=== PATIENT | female | born 1990 | race Caucasian/White ===

== ENCOUNTER 2017-03-31 12:56 | Inpatient (IN) | payer BC, OTHER ==
[~2017-03-31] VITALS: Ht 175.3 cm; Wt 63.5 kg
[2017-04-02] MEDS ORDERED: CLONIDINE HCL 0.1 MG TABLET PO PRN (14:15)
[2017-04-02] MEDS ORDERED: LOPERAMIDE HCL 2 MG CAPSULE PO PRN ×2 (14:15)
[2017-04-02] MEDS ORDERED: MAGNESIUM HYDROXIDE 30 ML LIQUID UDC PO PRN (14:15)
[2017-04-02] MEDS ORDERED: IBUPROFEN 600 MG TABLET PO PRN (14:15)
[2017-04-02] MEDS ORDERED: METHOCARBAMOL 750 MG TABLET PO PRN (14:15)
[2017-04-02] MEDS ORDERED: HYDROXYZINE PAMOATE 25 MG CAPSULE PO PRN (14:15)
[2017-04-02] MEDS ORDERED: ONDANSETRON 4 MG/2 ML VIAL IM PRN (14:15)
[2017-04-02] MEDS ORDERED: BUPRENORPHINE HCL 2 MG TAB.SUBL SL PRN (14:15)
[2017-04-02] MEDS ORDERED: ACETAMINOPHEN 325 MG TABLET PO PRN (14:15)
[2017-04-02] MEDS ORDERED: MAG HYDROX/AL HYDROX/SIMETH 30 ML LIQUID UDC PO PRN (14:15)
[2017-04-02] MEDS ORDERED: ONDANSETRON ODT 4 MG TAB.RAPDIS SL PRN (14:15)
[2017-04-02] MEDS ORDERED: MIRALAX 17 GM POWD.PACK PO PRN (14:15)
[2017-04-02 14:20] VITALS: BP 110/76
--- NOTE | 2017-04-02 14:20 | NUR ---
PRE-ADMISSION NOTE 26 year old female patient admitted under the care of Dr. Ervin. Pt states she is from [place] and came to [facility] to detox from heroin and methamphetamine. A/O x4. Pt reports using Heroin 1/2 gram (smoke) x1 month, last used 1/2 gram, on 04/01/17 at 1400, methamphetamine 1 gram (smoke), last used 1 gram on 03/28/17. Pt has used at this rate for 1 month and reports completing rehab in February 2017 in [facility] for 90 days. Pt reports allergies to Penicillin, regular diet, full code. V/S are wnl: B/P: 110/76, T:98.2, HR:69, RR 16 even and unlabored, 0/10 pain at this time. Pt is 5'9, and weighs 140 lbs. Pt reports smoking 1 pack of cigarettes daily. Will continue monitoring when patient comes on unit. Awaiting for MD orders.
[2017-04-02 15:13] LABS: *URINE HCG, QUAL NEGATIVE (NEGATIVE)
--- NOTE | 2017-04-02 15:15 | NUR ---
ADMISSION NOTE Pt is a 26 year old female, admitted on 04/02/17 at 1420 for heroin and methamphetamine dependence and medically supervised withdrawals. Pts skin and body check completed, no contraband found, pt skin is intact. Pt awake, alert, oriented x 4, gait steady, pt is ambulatory without assistance. Pt weighs 140 pounds and his height is 59. Denies any history of seizures. Pt is primary source of information, information consistent, speech coherent. Pt refused PNA Vaccinations stating that he will receive it somewhere else. Pt states that she does not have a PCP and pt denies having a psychiatrist or a psychologist. Pt requested to be full code, regular diet on fall and universal precautions, Pt denies any food allergies but states he is allergic to Penicillin. Pt reports living with family. Reports smoking cigarettes, 1 pack a day. Pt reports being in a rehab for 90 days which was completed in February of 2017 at [facility] in [place], MRSA swab will be done. Initial vital signs are BP: 110/76, Temp: 98.2, Pulse: 69 SPO2: 98% room air, RR:17 and states that he has 0/10 pain. Initial COWS upon admission is 5. Pt reports PMH of Anxiety, asthma, and insomnia. Reports longest sobriety lasted 90 days which was from November 2016 to February 2017. Pt denies SI/HI or hallucinations. Pt denies having a PCP. Pt is cooperative, and ambulates with steady gait. Pt reports taking Trazodone 100mg, Vistaril 50mg and Benadryl (unknown dose), and inhaler for asthma. Medications to be reconciled, MD orders will be carried out. Safety precautions are in place per hospital protocol. Substance use Hx: 1. Heroin: gram (smoke) x1 month, last used on 04/01/17 at 1400 2. Methamphetamine: 1 gram (smoke) x1 month, last used on 03/28/17
[2017-04-02] MEDS: GABAPENTIN 300 MG CAPSULE PO SCH ×2 (15:21→21:29)
--- NOTE | 2017-04-02 15:23 | NUR ---
PRN IMODIUM Pt reports episode of 1x diarrhea. PRN Imodium 4mg administered as ordered. Will reassess.
[2017-04-02 15:30] LABS: *AMPHETAMINE, URINE NEGATIVE (NEGATIVE); *BARBITURATE, URINE NEGATIVE (NEGATIVE); *CANNABINOID, URINE NEGATIVE (NEGATIVE); *COCCAINE, URINE NEGATIVE (NEGATIVE); *OPIATE, URINE POSITIVE (NEGATIVE); *PHENCYCLIDINE SCREEN,URINE NEGATIVE (NEGATIVE)
[2017-04-02] MEDS ORDERED: HYDR50CA PO ×2 (16:01→17:13)
[2017-04-02] MEDS ORDERED: TRAZ-147 PO ×2 (16:01→17:13)
[2017-04-02] MEDS ORDERED: DIPH25CA83 PO ×2 (16:01→17:13)
--- NOTE | 2017-04-02 16:30 | NUR ---
REASSESSMENT Pt states Imodium was effective, denies further episodes of diarrhea.
[2017-04-02 16:33] LABS: BASOPHILS % (AUTO) 0.3 % (0.0-2.0); EOSINOPHILS # (AUTO) 0.1 K/uL (0.0-0.7); EOSINOPHILS % (AUTO) 1.3 % (0.0-7.0); HEMATOCRIT 38.6 % (37-47); HEMOGLOBIN 13.5 G/DL (12.0-16.0); LYMPHOCYTES # (AUTO) 1.5 K/UL (0.8-4.8); LYMPHOCYTES % (AUTO) 25.2 % (20.5-51.5); MEAN CORPUSCULAR HGB CONC 35 g/dL (32.0-37.0); MEAN CORPUSCULAR VOLUME 91.2 FL (81.0-99.0); MONOCYTES # (AUTO) 0.4 K/UL (0.1-1.30); MONOCYTES % (AUTO) 6.7 % (0.0-11.0); NEUTROPHILS # (AUTO) 4.1 K/UL (1.8-8.9); NEUTROPHILS % (AUTO) 66.5 % (38.5-71.5); PLATELET COUNT (AUTO) 232 K/UL (150-450); RED BLOOD CELL COUNT(AUTO) 4.23 MIL/UL (4.2-5.4); RED CELL DISTRIBUTION WIDTH 13.2 % (11.5-14.5); WHITE BLOOD COUNT (AUTO) 6.1 K/UL (4.0-11.2)
[2017-04-02 16:41] LABS: ALANINE AMINOTRANSFERASE 14 U/L (14-59); ALBUMIN 4.5 g/dL (3.4-5.0); ALKALINE PHOSPHATASE 58 U/L (50-136); ASPARTATE AMINOTRANSFERASE 19 U/L (15-37); BILIRUBIN,TOTAL 0.5 mg/dL (0.2-1.0); CARBON DIOXIDE 29 mmol/L (21-32); CHLORIDE 103 mmol/L (98-107); CREATININE 1.1 mg/dL (0.6-1.3); GFR 59 mL/min (>60); GLUCOSE 78 mg/dL (74-106); POTASSIUM 4.3 mmol/L (3.5-5.1); SODIUM SERUM 141 mmol/L (136-145); TOTAL PROTEIN, SERUM 7.6 g/dL (6.4-8.2); UREA NITROGEN, BLOOD 13 mg/dL (7-18)
[2017-04-02 16:43] LABS: ETHANOL < 3 MG/DL (0-0)
[2017-04-02 16:54] LABS: THYROID STIMULATING HORMONE 0.212 mIU/mL (0.358-3.740)
[2017-04-02] MEDS ORDERED: NALT50TA PO (17:13)
[2017-04-02 17:36] VITALS: BP 115/78
[2017-04-02] MEDS ORDERED: ALBU2.5V13 NEB (17:52)
[2017-04-02 18:00] LABS: HIV-1 p24 ANTIGEN NON REACTIVE (NONREACTIVE); HIV-1/2 ANTIBODY NON REACTIVE (NONREACTIVE)
--- NOTE | 2017-04-02 19:04 | NUR ---
END OF SHIFT Endorsed to instructor tap dancing nurse. 26 year old female patient admitted on 04/02/17 for heroin and methamphetamine withdrawals. Pt is A/O x4. Pt has not started on a taper, most recent COWS is 5. V/S are WNL. No acute distress or discomfort noted thoughout shift. Pt reports using Heroin: gram (smoke) x1 month, last used on 04/01/17 at 1400 and Methamphetamine: 1 gram (smoke) x1 month, last used on 03/28/17. Pt has a 3 day Subutex taper to be started 04/03/17 at 0900. PRN Imodium was administered during shift and effective. MRSA swab was done, results are pending at this time. Pt ate 100% of dinner. All needs met at this time. Safety precautions are in place. Pt is cooperative and compliant with treatment. Denies N/V/D. php software engineer nurse to continue monitoring.
[2017-04-02 20:00] VITALS: BP 110/52
--- NOTE | 2017-04-02 20:00 | NUR ---
START OF SHIFT NOTE PATIENT IN ROOM, WATCHING TV. PATIENT ALERT AND ORIENTED X 4. RESPIRATION EVEN AND UNLABORED. REPORTS ANXIETY, RUNNY NOSE AND STOMACH CRAMPING. PAIN 0/10. NO N/V. RECEIVED REPORT FROM DAY SHIFT NURSE. PATIENT IS A 26 YEAR OLD FEMALE NEWLY ADMITTED FOR HEROIN AND METH DEPENDENCY. PATIENT WAS PLACED ON 3 DAY SUBUTEX TAPER TO START TOMORROW. PATIENT IS FULL CODE, REGULAR DIET AND ALLERGIC TO PENICILLIN. PATIENT REPORTS PMH OF ANXIETY , ASTHMA AND INSOMNIA. PATIENT WAS USING HEROIN 1/2 GRAM DAILY AND METH 1 GRAM DAILY FOR A MONTH. PATIENT WAS CLEAN FOR 90 DAYS. SKIN INTACT. VS STABLE. PATIENT WAS GIVEN PRN IMODIUM X 1 DURING THE DAY. LAST COWS 5. SAFETY MEASURES IN PLACE. CALL LIGHT IN REACH. WILL CONTINUE TO MONITOR.
[2017-04-02] MEDS ORDERED: TRAZODONE 50 MG TABLET PO ONE (21:00)
[2017-04-02] MEDS: DICYCLOMINE HCL 20 MG TABLET PO PRN (21:29)
--- NOTE | 2017-04-02 21:29 | NUR ---
LUZ VACA AND ONE TIME DESYREL ADMINISTRATION PATIENT REPORTS ABDOMINAL CRAMPING AND REQUESTS FOR SLEEP AID, OBTAIN ORDER OF TRAZADONE FROM DR. LLOYD. WILL MONITOR FOR EFFECTIVENESS
[2017-04-02] MEDS ORDERED: TRAZODONE 50 MG TABLET ONE (21:32)
--- NOTE | 2017-04-02 22:29 | NUR ---
PRN BENTYL/ONE TIME TRAZADONE RE-ASSESSMENT PATIENT IN BED WITH EYES CLOSED. NO S/S OF DISTRESS. RESPIRATION EVEN AND UNLABORED. SAFETY MEASURES IN PLACE.CALL LIGHT IN REACH. WILL CONTINUE TO MONITOR.
[2017-04-03] VITALS: BP 107/60
[2017-04-03 04:00] VITALS: BP 94/54
--- NOTE | 2017-04-03 07:11 | NUR ---
END OF SHIFT NOTE MONITORED PATIENT THROUGHOUT THE NIGHT. PATIENT REMAIN ALERT AND ORIENTED X 4. RESPIRATION EVEN AND UNLABORED. PATIENT REPORTED ANXIETY, RUNNY NOSE AND STOMACH CRAMPING DURING SHIFT. PAIN 0/10. NO N/V/D. PATIENT IS A 26 YEAR OLD FEMALE NEWLY ADMITTED FOR HEROIN AND METH DEPENDENCY. PATIENT WAS PLACED ON 3 DAY SUBUTEX TAPER TO START TODAY . PATIENT IS FULL CODE, REGULAR DIET AND ALLERGIC TO PENICILLIN. PATIENT REPORTS PMH OF ANXIETY , ASTHMA AND INSOMNIA. PATIENT WAS USING HEROIN 1/2 GRAM DAILY AND METH 1 GRAM DAILY FOR A MONTH. PATIENT WAS CLEAN FOR 90 DAYS. SKIN INTACT. VS STABLE. PATIENT WAS GIVEN PRN BENTYL AND ONE TIME DESYREL AT 2128., EFFECTIVE. PATIENT COMPLIANT WITH MEDICATIONS. PATIENT IN HER ROOM MOST OF THE SHIFT. SAFETY MEASURES IN PLACE. CALL LIGHT IN REACH. WILL CONTINUE TO MONITOR. SLEPT 8 HOURS. FLUID INTAKE 1,146 ML. VOIDED X 2. NO BM. LAST COWS 1 .
--- NOTE | 2017-04-03 07:12 | NUR ---
Start of Shift Notes: Received patient in her room. Alert and oriented x 4. Verbally responsive. Able to make needs known. Respirations even and unlabored. No SOB noted. Skin warm and dry to touch. Abdomen soft and non-distended. BS (+) in all 4 quadrants. No complains of N/V/D or constipation noted. No complains of abdominal discomfort or constipation. Voids independently. Ambulatory ad mercy with steady gait. Patient is a 26 year old female admitted for opiate and methamphetamine dependence who was placed on a 3 day Subutex taper as ordered. No adverse reactions noted. Has past medical hx of anxiety, asthma and insomnia. FULL CODE. Regular diet. On fall and seizure precaution. Allergic to PCN. Education patient on her current plan of care for the day and her medication regimen. Encouraged oral fluid intake and encouraged group participation to learn new skills to prevent relapse. Will continue to monitor.
[2017-04-03 08:00] VITALS: BP 114/64
[2017-04-03 08:09] LABS: HCV AB <0.1 s/co ratio (0.0-0.9); HEPATITIS B CORE AB, IgM Negative (Negative); HEPATITIS B SURFACE AG Negative (Negative)
[2017-04-03] MEDS: DICYCLOMINE HCL 20 MG TABLET PO PRN (08:36)
[2017-04-03] MEDS: MULTIVITAMINS,THERAPEUTIC TABLET PO SCH (08:36)
[2017-04-03] MEDS: GABAPENTIN 300 MG CAPSULE PO SCH ×3 (08:36→20:53)
--- NOTE | 2017-04-03 08:36 | NUR ---
PRN Bentyl and Vistaril 50 mg PO given: COWS 3 - patient presented with abdominal cramps, and anxiety. Medicated patient with Bentyl 20 mg PO and Vistaril 50 mg PO. Will monitor for effectiveness.
[2017-04-03] MEDS ORDERED: 3 DAY TAPER BUPRENORPHINE -SERENITY PROTOCOL SL PRN (09:00)
[2017-04-03] MEDS ORDERED: TUBERCULIN,PURIF.PROT.DERIV. 5 TU/0.1 ML TEST ID ONE (09:00)
[2017-04-03] MEDS ORDERED: DOCUSATE SODIUM 250 MG CAPSULE PO SCH (09:00)
[2017-04-03] MEDS ORDERED: BUPRENORPHINE HCL 2 MG TAB.SUBL SL SCH (09:00)
--- NOTE | 2017-04-03 09:33 | NUR ---
0900 Subutex not administered: Patient's schedule 0900 Subutex 4 mg SL was not administered. Patient did not meet parameters for COWS score. Current COWS 3 - due to abdominal cramps and anxiety. MD made aware.
--- NOTE | 2017-04-03 09:36 | NUR ---
Re-assessment: Per patient, PRN Bentyl and Vistaril were effective in reducing anxiety and stomach cramps.
[2017-04-03 12:00] VITALS: BP 103/55
[2017-04-03] MEDS ORDERED: ALBUTEROL SULFATE 2.5 MG/ 0.5 ML NEBU NEB PRN (12:15)
[2017-04-03] MEDS ORDERED: Gabapentin PO (12:46)
[2017-04-03] MEDS ORDERED: CLON0.1T14 PO (12:46)
[2017-04-03] MEDS ORDERED: DICY20TA28 PO (12:46)
[2017-04-03] MEDS ORDERED: METH-33 PO (12:46)
--- NOTE | 2017-04-03 14:00 | NUR ---
Mid Shift Notes: COWS 2. Patient is in group at this time. In no acute distress noted.
[2017-04-03] MEDS ORDERED: TRAZODONE 100 MG TABLET PO PRN (14:45)
[2017-04-03 15:24] LABS: *AMPHETAMINE, URINE NEGATIVE (NEGATIVE); *BARBITURATE, URINE NEGATIVE (NEGATIVE); *CANNABINOID, URINE NEGATIVE (NEGATIVE); *COCCAINE, URINE NEGATIVE (NEGATIVE); *OPIATE, URINE NEGATIVE (NEGATIVE); *PHENCYCLIDINE SCREEN,URINE NEGATIVE (NEGATIVE)
--- NOTE | 2017-04-03 15:30 | NUR ---
CXR: Orders obtained from MD for CXR for med clearance for active TB. Orders noted and carried out.
[2017-04-03 16:00] VITALS: BP 109/74
--- NOTE | 2017-04-03 18:52 | NUR ---
End of Shift Notes: Patient is a 26 year old female admitted for opiate and methamphetamine dependence that was placed on a 3-day Subutex taper but has been discontinued due to low COWS score. Prior to admission, patient was using gram of heroin and 1 gram of methamphetamine. VS monitored closely q 4hours. No significant abnormalities noted. Withdrawal symptoms were closely monitored. Initial COWS 3 patient presented with anxiety and abdominal cramps. Medicated patient with Vistaril 50 mg PO and Bentyl 20 mg PO at 0836 with help after 1 hour. Last COWS 1. Will be discharging tomorrow. UDS in and resulted. Seen by MD Kennedy today with new orders. Patient was able to participate in group and activities. Compliant with care and treatment. All needs met and attended. Will continue to monitor closely.
--- NOTE | 2017-04-03 19:40 | NUR ---
Start of shift note Received report from day shift nurse. Pt is a 26 yo female, A+Ox4, presenting to [facility] for Opiate/Methamphetamine dependence. Pt has NKA, is Full Code status, and on Regular diet. Pt is on Fall precautions. Pt has HX of Anxiety, Asthma, and Insomnia. Pt is on PRN medications and is due for discharge tomorrow. No s/s of distress noted at this time. Respirations even and unlabored. Will continue to monitor. Addendum: 04/04/17 at 0730 by SATINDER LUJAN LVN Pt has Allergies to PCN
[2017-04-03 20:14] VITALS: BP 146/75
[2017-04-04 00:44] VITALS: BP 108/55
[2017-04-04 04:13] VITALS: BP 106/52
--- NOTE | 2017-04-04 07:07 | NUR ---
End of shift note Pt is a 26 yo female, A+Ox4, presenting to [facility] for Opiate/Methamphetamine dependence. Pt has NKA, is Full Code status, and on Regular diet. Pt is on Fall precautions. Pt has HX of Anxiety, Asthma, and Insomnia. Pt is on PRN medications and is due for discharge today. Pt slept for a total of 6 HRS. Last COWS: 1 @0400. No s/s of distress noted at this time. Respirations even and unlabored. Will endorse to day shift nurse. Addendum: 04/04/17 at 0729 by SATINDER LUJAN LVN Pt has Allergies to PCN
--- NOTE | 2017-04-04 07:30 | NUR ---
start of shift note: received pt from machine maintenance technician nurse, pt is in stable condition at this time no s/s of pain or discomfort. pt is admitted to [facility] for opiate/meth withdrawal/dependence. pt is set to discharge today. will assist pt in discharging and will continue to monitor pt for any changes.
[2017-04-04 08:01] VITALS: BP 121/72
[2017-04-04] MEDS ORDERED: BUPRENORPHINE HCL 2 MG TAB.SUBL SL SCH (09:00)
[2017-04-04] MEDS: GABAPENTIN 300 MG CAPSULE PO SCH (09:24)
[2017-04-04] MEDS: MULTIVITAMINS,THERAPEUTIC TABLET PO SCH (09:24)
--- NOTE | 2017-04-04 12:20 | NUR ---
discharge note: pt left the unit in stable condition, no s/s of pain or discomfort or any withdrawal symptoms. pt teaching administered and pt verbalized understanding. pt left with all personal belongings. pt was transferred to [facility] via private car
[2017-04-05] MEDS ORDERED: BUPRENORPHINE HCL 2 MG TAB.SUBL SL SCH (09:00)
[2017-04-09 22:44] LABS: *CODEINE Negative (Cutoff=300); *HYDROMORPHONE Negative (Cutoff=300); *OPIATES Positive ng/mL (Cutoff=300)
== END 2017-04-04 12:07 | disposition home or self-care (01) | DRG 895 ==
LOC: SRC 04-02 13:41
PROVIDERS: ADMIT Internal Medicine; ATTEND Internal Medicine
PROC: HZ41ZZZ Group Counseling for Substance Abuse Treatment, Behavioral (ICD-10-PCS; principal; 2017-04-02)
PROC: HZ2ZZZZ Detoxification Services for Substance Abuse Treatment (ICD-10-PCS; principal; 2017-04-02)
DX: F11.23 Opioid dependence with withdrawal (principal); F15.20 Other stimulant dependence, uncomplicated; J45.20 Mild intermittent asthma, uncomplicated; Z59.0 Homelessness; Z79.899 Other long term (current) drug therapy; F17.210 Nicotine dependence, cigarettes, uncomplicated; E07.81 Sick-euthyroid syndrome
CPT/HCPCS: 36415; 70030-TC; 71010; 80307; 80361; 83735; 84443; 84703; 85025; 86580; 86592; 86705; 86803; 87340; 87806; G6040-TC

== ENCOUNTER 2017-10-18 18:21 | Inpatient (IN) | payer BC, OTHER ==
[~2017-10-18] VITALS: Ht 175.3 cm; Wt 58.5 kg
[~2017-10-18 18:21] MED LIST: ALBU2.5V13 NEB; CLON0.1T14 PO; DICY20TA28 PO; DIPH25CA83 PO; Gabapentin PO; METH-33 PO; NALT50TA PO
[2017-10-18] MEDS ORDERED: ONDANSETRON 4 MG/2 ML VIAL IM PRN (19:30)
[2017-10-18] MEDS ORDERED: DICYCLOMINE HCL 20 MG TABLET PO PRN (19:30)
[2017-10-18] MEDS ORDERED: ONDANSETRON ODT 4 MG TAB.RAPDIS SL PRN (19:30)
[2017-10-18] MEDS ORDERED: MAG HYDROX/AL HYDROX/SIMETH 30 ML LIQUID UDC PO PRN (19:30)
[2017-10-18] MEDS ORDERED: ALBUTEROL SULFATE 2.5 MG/ 0.5 ML NEBU NEB PRN (19:30)
[2017-10-18] MEDS ORDERED: LOPERAMIDE HCL 2 MG CAPSULE PO PRN ×2 (19:30)
[2017-10-18] MEDS ORDERED: NICOTINE 14 MG/24HR PATCH TD PRN (19:30)
[2017-10-18] MEDS ORDERED: BUPRENORPHINE HCL 2 MG TAB.SUBL SL PRN (19:30)
[2017-10-18] MEDS ORDERED: ACETAMINOPHEN 325 MG TABLET PO PRN (19:30)
[2017-10-18] MEDS ORDERED: CLONIDINE HCL 0.1 MG TABLET PO PRN (19:30)
[2017-10-18] MEDS ORDERED: METHOCARBAMOL 750 MG TABLET PO PRN (19:30)
[2017-10-18] MEDS ORDERED: LORAZEPAM 1 MG TABLET PO PRN ×2 (19:30)
[2017-10-18] MEDS ORDERED: MAGNESIUM HYDROXIDE 30 ML LIQUID UDC PO PRN (19:30)
[2017-10-18] MEDS ORDERED: IBUPROFEN 600 MG TABLET PO PRN (19:30)
[2017-10-18] MEDS ORDERED: NICOTINE POLACRILEX 4 MG GUM-PK OF TEN BC PRN (19:30)
[2017-10-18] MEDS ORDERED: LORAZEPAM 2 MG/1 ML VIAL IM PRN (19:30)
[2017-10-18] MEDS ORDERED: MIRALAX 17 GM POWD.PACK PO PRN (19:30)
[2017-10-18 19:37] LABS: *AMPHETAMINE, URINE POSITIVE (NEGATIVE); *BARBITURATE, URINE NEGATIVE (NEGATIVE); *CANNABINOID, URINE NEGATIVE (NEGATIVE); *COCCAINE, URINE NEGATIVE (NEGATIVE); *OPIATE, URINE POSITIVE (NEGATIVE); *PHENCYCLIDINE SCREEN,URINE NEGATIVE (NEGATIVE)
[2017-10-18 20:20] LABS: BASOPHILS % (AUTO) 0.3 % (0.0-2.0); EOSINOPHILS % (AUTO) 0.6 % (0.0-7.0); HEMATOCRIT 43.7 % (37-47); HEMOGLOBIN 14.8 G/DL (12.0-16.0); LYMPHOCYTES # (AUTO) 1.4 K/UL (0.8-4.8); LYMPHOCYTES % (AUTO) 22.8 % (20.5-51.5); MEAN CORPUSCULAR HEMOGLOBIN 30.4 UUG (27.0-31.0); MEAN CORPUSCULAR HGB CONC 34 g/dL (32.0-37.0); MEAN CORPUSCULAR VOLUME 90.1 FL (81.0-99.0); MONOCYTES # (AUTO) 0.4 K/UL (0.1-1.30); MONOCYTES % (AUTO) 6.8 % (0.0-11.0); NEUTROPHILS # (AUTO) 4.3 K/UL (1.8-8.9); NEUTROPHILS % (AUTO) 69.5 % (38.5-71.5); PLATELET COUNT (AUTO) 277 K/UL (150-450); RED BLOOD CELL COUNT(AUTO) 4.85 MIL/UL (4.2-5.4); WHITE BLOOD COUNT (AUTO) 6.1 K/UL (4.0-11.2)
[2017-10-18 20:27] LABS: ALANINE AMINOTRANSFERASE 14 U/L (14-59); ALKALINE PHOSPHATASE 72 U/L (50-136); ASPARTATE AMINOTRANSFERASE 17 U/L (15-37); BILIRUBIN,TOTAL 0.5 mg/dL (0.2-1.0); CARBON DIOXIDE 30 mmol/L (21-32); CHLORIDE 102 mmol/L (98-107); CREATININE 1.2 mg/dL (0.6-1.3); GLUCOSE 78 mg/dL (74-106); MAGNESIUM 2.1 mg/dL (1.8-2.4); POTASSIUM 3.4 mmol/L (3.5-5.1); TOTAL PROTEIN, SERUM 7.6 g/dL (6.4-8.2); UREA NITROGEN, BLOOD 17 mg/dL (7-18)
[2017-10-18 20:28] LABS: ETHANOL < 3 MG/DL (0-0)
[2017-10-18 20:29] LABS: *URINE HCG, QUAL NEGATIVE (NEGATIVE)
[2017-10-18 20:48] VITALS: BP 132/73
[2017-10-18] MEDS ORDERED: LACTOBACILLUS RHAMNOSUS GG 1 EACH CAPSULE ONE (20:48)
[2017-10-18] MEDS ORDERED: GABAPENTIN 300 MG CAPSULE ONE (20:48)
[2017-10-18] MEDS ORDERED: SULFAMETH/TRIMETH 800/160 MG TABLET ONE (20:49)
[2017-10-18] MEDS ORDERED: LORAZEPAM 1 MG TABLET ONE (20:50)
[2017-10-18] MEDS ORDERED: LORAZEPAM 1 MG TABLET PO ONE (21:00)
[2017-10-18] MEDS ORDERED: BUPRENORPHINE HCL 2 MG TAB.SUBL SL SCH (21:00)
[2017-10-18] MEDS: SULFAMETH/TRIMETH 800/160 MG TABLET PO SCH (21:23)
[2017-10-18] MEDS: GABAPENTIN 300 MG CAPSULE PO SCH (21:23)
[2017-10-18] MEDS: LACTOBACILLUS RHAMNOSUS GG 1 EACH CAPSULE PO SCH (21:24)
[2017-10-19 04:00] VITALS: BP 90/63
[2017-10-19 08:00] VITALS: BP 102/64
[2017-10-19] MEDS: GABAPENTIN 300 MG CAPSULE PO SCH ×3 (08:41→21:23)
[2017-10-19] MEDS: SULFAMETH/TRIMETH 800/160 MG TABLET PO SCH ×2 (08:41→21:23)
[2017-10-19] MEDS: LACTOBACILLUS RHAMNOSUS GG 1 EACH CAPSULE PO SCH ×2 (08:42→21:24)
[2017-10-19] MEDS: BUPRENORPHINE HCL 2 MG TAB.SUBL SL SCH ×3 (08:42→21:24)
[2017-10-19] MEDS ORDERED: TUBERCULIN,PURIF.PROT.DERIV. 5 TU/0.1 ML TEST ID ONE (09:00)
[2017-10-19] MEDS: ESCITALOPRAM OXALATE 10 MG TABLET PO SCH (11:03)
[2017-10-19 12:00] VITALS: BP 111/60
[2017-10-19 16:00] VITALS: BP 103/63
[2017-10-19 20:00] VITALS: BP 116/65
[2017-10-19] MEDS ORDERED: POTASSIUM CHLORIDE 10 MEQ CAPSULE.SA PO ONE (21:00)
[2017-10-20 04:00] VITALS: BP 106/50
[2017-10-20 08:00] VITALS: BP 110/65
[2017-10-20] MEDS ORDERED: BUPRENORPHINE HCL 2 MG TAB.SUBL SL SCH (09:00)
[2017-10-20] MEDS: SULFAMETH/TRIMETH 800/160 MG TABLET PO SCH ×2 (09:24→21:35)
[2017-10-20] MEDS: GABAPENTIN 300 MG CAPSULE PO SCH ×3 (09:24→21:34)
[2017-10-20] MEDS: ESCITALOPRAM OXALATE 10 MG TABLET PO SCH (09:25)
[2017-10-20] MEDS: LACTOBACILLUS RHAMNOSUS GG 1 EACH CAPSULE PO SCH ×2 (09:25→21:35)
[2017-10-20 10:07] LABS: HEPATITIS B SURFACE AG Negative (Negative)
[2017-10-20 12:00] VITALS: BP 116/69
[2017-10-20] MEDS: BUPRENORPHINE HCL 2 MG TAB.SUBL SL SCH ×2 (14:42→21:36)
[2017-10-20 16:00] VITALS: BP 125/74
[2017-10-20 20:00] VITALS: BP 113/58
[2017-10-21 08:00] VITALS: BP 107/66
[2017-10-21] MEDS: SULFAMETH/TRIMETH 800/160 MG TABLET PO SCH ×2 (08:59→21:40)
[2017-10-21] MEDS: GABAPENTIN 300 MG CAPSULE PO SCH ×3 (08:59→21:39)
[2017-10-21] MEDS: BUPRENORPHINE HCL 2 MG TAB.SUBL SL SCH ×3 (08:59→21:40)
[2017-10-21] MEDS: ESCITALOPRAM OXALATE 10 MG TABLET PO SCH (08:59)
[2017-10-21] MEDS: LACTOBACILLUS RHAMNOSUS GG 1 EACH CAPSULE PO SCH ×2 (08:59→21:40)
[2017-10-21 12:00] VITALS: BP_SYST 121; BP_DIAS 6; BP_DIAS 76
[2017-10-21 16:00] VITALS: BP 135/69
[2017-10-21 20:00] VITALS: BP 125/56
[2017-10-21] MEDS: diphenhydrAMINE 50 MG CAPSULE PO PRN (21:39)
[2017-10-22 08:00] VITALS: BP 111/66
[2017-10-22] MEDS: SULFAMETH/TRIMETH 800/160 MG TABLET PO SCH ×2 (08:09→21:38)
[2017-10-22] MEDS: ESCITALOPRAM OXALATE 10 MG TABLET PO SCH (08:09)
[2017-10-22] MEDS: LACTOBACILLUS RHAMNOSUS GG 1 EACH CAPSULE PO SCH ×2 (08:10→21:38)
[2017-10-22] MEDS: GABAPENTIN 300 MG CAPSULE PO SCH ×3 (08:10→21:38)
[2017-10-22] MEDS ORDERED: BUPRENORPHINE HCL 2 MG TAB.SUBL SL SCH (09:00)
[2017-10-22 12:00] VITALS: BP 110/67
[2017-10-22] MEDS ORDERED: MIRALAX 17 GM POWD.PACK PO ONE (12:30)
[2017-10-22] MEDS ORDERED: SIMETHICONE 80 MG TAB.CHEW PO PRN (12:30)
[2017-10-22] MEDS ORDERED: PSYLLIUM SEED PACKET PO PRN (12:30)
[2017-10-22] MEDS: DOCUSATE SODIUM 100 MG CAPSULE PO SCH (12:46)
[2017-10-22 16:00] VITALS: BP 112/86
[2017-10-22 20:00] VITALS: BP 111/73
[2017-10-22] MEDS: diphenhydrAMINE 50 MG CAPSULE PO PRN (21:38)
[2017-10-22] MEDS ORDERED: DICY20TA28 PO (22:10)
[2017-10-22] MEDS ORDERED: DOCU100C36 PO (22:10)
[2017-10-22] MEDS ORDERED: IBUP-1955 PO (22:10)
[2017-10-22] MEDS ORDERED: DIPH50CA37 PO (22:10)
[2017-10-22] MEDS ORDERED: METH-406 PO (22:10)
[2017-10-22] MEDS ORDERED: ESCI10TA PO (22:10)
[2017-10-22] MEDS ORDERED: CLON0.1T14 PO (22:10)
[2017-10-22] MEDS ORDERED: GABA-534 PO (22:10)
[2017-10-23] MEDS: SULFAMETH/TRIMETH 800/160 MG TABLET PO SCH (08:46)
[2017-10-23] MEDS: DOCUSATE SODIUM 100 MG CAPSULE PO SCH (08:46)
[2017-10-23] MEDS: LACTOBACILLUS RHAMNOSUS GG 1 EACH CAPSULE PO SCH (08:47)
[2017-10-23] MEDS: GABAPENTIN 300 MG CAPSULE PO SCH (08:47)
[2017-10-23] MEDS: ESCITALOPRAM OXALATE 10 MG TABLET PO SCH (08:47)
[2017-10-23 09:00] VITALS: BP 111/78
== END 2017-10-23 09:40 | DRG 895 ==
LOC: SRC 18:21
PROVIDERS: ADMIT Internal Medicine; ATTEND Internal Medicine
PROC: HZ2ZZZZ Detoxification Services for Substance Abuse Treatment (ICD-10-PCS; principal; 2017-10-18)
PROC: HZ31ZZZ Individual Counseling for Substance Abuse Treatment, Behavioral (ICD-10-PCS; 2017-10-20)
DX: F11.23 Opioid dependence with withdrawal (principal); F33.2 Major depressive disorder, recurrent severe without psychotic features; L03.113 Cellulitis of right upper limb; L03.114 Cellulitis of left upper limb; F15.23 Other stimulant dependence with withdrawal; F14.10 Cocaine abuse, uncomplicated; F16.10 Hallucinogen abuse, uncomplicated; F17.210 Nicotine dependence, cigarettes, uncomplicated; E87.6 Hypokalemia; S41.101S Unspecified open wound of right upper arm, sequela; S41.102S Unspecified open wound of left upper arm, sequela; Y33.XXXS Other specified events, undetermined intent, sequela; K59.03 Drug induced constipation; G47.00 Insomnia, unspecified; F41.9 Anxiety disorder, unspecified; J45.20 Mild intermittent asthma, uncomplicated; Z79.899 Other long term (current) drug therapy; Z88.0 Allergy status to penicillin; Z91.89 Other specified personal risk factors, not elsewhere classified; Z82.61 Family history of arthritis; Z82.49 Family history of ischemic heart disease and other diseases of the circulatory system
CPT/HCPCS: 36415; 70030-TC; 80307; 80324; 80361; 83735; 84703; 85025; 86580; 86592; 86705; 86803; 87340; 87806; G0480; Q0163